=== PATIENT | male | born 1995 | race Caucasian/White ===

== ENCOUNTER 2021-04-24 14:20 | Emergency (ER) | payer BC ==
--- NOTE | 2021-04-24 16:09 | XRAY ---
Exam: CT of the lumbar spine without IV contrast from 04/24/2021. CTDI: 58.99 mGy Comparison: None. Indication: 26-year-old male fell on ice this morning; complains of low back pain. Technique: Non-IV contrast axial images were obtained through the lumbar spine using a bone window filter. Reconstructed coronal and sagittal images were created and reviewed. Findings: There are 5 [id number] lumbar-type vertebra. The lumbar vertebral body heights are adequately preserved and in good alignment. An acute fracture, spondylolisthesis, or spondylolysis is not seen. The neural foramen appear patent on the axial and sagittal images. The discs appear of average height. There is mild diffuse bulging of the L5-S1 disc. The facet joints appear unremarkable. The. The visualized sacroiliac joints appear unremarkable. Impression: 1. No acute lumbar spine fracture, spondylolisthesis, or spondylolysis seen. 2. There is incidental note of mild diffuse bulging of the L5-S1 disc, best appreciated on the sagittal images.
[2021-04-24 16:22] VITALS: BP 129/76; PULSE 80; O2SAT 96
--- NOTE | 2021-04-24 16:37 | ERPHSYRPT ---
- History of Present Illness Time Seen by Provider: 04/24/21 15:35 Source: patient Exam Limitations: no limitations Patient Subjective Stated Complaint: fall this am, lower back pain Triage Nursing Assessment: pt to ED c/o fall this morning on ice. pt states he hit his lower back on the steps. rates 8/10 pain currently. has not taken any meds for pain at home today. "I thought I could sleep it off and feel better but it still hurts." ambulatory with steady gate per self. Physician History: Patient 24-year-old male presents to emergency department with complaint of low back pain. Patient states that he slipped on steps fell backwards onto his buttock. Fall occurred today. Patient now complains of pain in his lumbosacral region. Patient went to sleep and felt that maybe if he rested the pain would resolve. Patient awoke from his sleep and states that his pain was significant. Patient is ambulatory. Pain described as an ache that is localized to the lumbosacral region. No radiation. No fever. No saddle anesthesia. No lower extremity numbness tingling or weakness. No change in bowel bladder function. Pain worse with movement and palpation. Pain improved with rest. No other injuries reported. No BHT or LOC. No neck pain. Cervical spine cleared clinically. Patient otherwise generally healthy. He voices no other complaints concerns at this time. Patient has no urinary symptomology. No frequency urgency dysuria hematuria. No flank pain. Timing/Duration: today Method of Injury: fall Quality: aching Back Pain Location: lumbar spine Back Pain Radiation: buttocks (No radiation.) Severity of Pain-Max: moderate Severity of Pain-Current: mild Modifying Factors: Improves With: movement Associated Symptoms: denies symptoms Previous symptoms: no prior history Allergies/Adverse Reactions: No Known Drug Allergies Allergy (Unverified 04/24/21 14:33) Home Medications: No Reportable Medications [No Reported Medications] 04/24/21 [History] Hx Tetanus, Diphtheria Vaccination/Date Given: No Hx Influenza Vaccination/Date Given: No Hx Pneumococcal Vaccination/Date Given: No Immunizations Up to Date: No Travel Risk - International Travel Have you traveled outside of the country in past 3 weeks: No - Coronavirus Screening Are you exhibiting any of the following symptoms?: No Close contact with a COVID-19 positive Pt in past 14-21 Days: No - Vaccine Status Have you recieved a Covid-19 vaccination: Yes Professor Of Physics: [employer] - Vaccination Dates Date of 2cond Vaccination (if applicable): apr - Review of Systems Constitutional: No Symptoms, No Fever, No Chills Eyes: No Symptoms Ears, Nose, & Throat: No Symptoms Respiratory: No Symptoms, No Cough, No Dyspnea Cardiac: No Symptoms, No Chest Pain, No Edema, No Syncope Abdominal/Gastrointestinal: No Symptoms, No Abdominal Pain, No Nausea, No Vomiting, No Diarrhea Genitourinary Symptoms: No Symptoms, No Dysuria Musculoskeletal: No Symptoms, No Back Pain, No Neck Pain Skin: No Symptoms, No Rash Neurological: No Symptoms, No Dizziness, No Focal Weakness, No Sensory Changes Psychological: No Symptoms Endocrine: No Symptoms Hematologic/Lymphatic: No Symptoms Immunological/Allergic: No Symptoms All Other Systems: Reviewed and Negative - Past Medical History Pertinent Past Medical History: No - Past Surgical History Past Surgical History: No - Social History Smoking Status: Current every day smoker How long have you smoked: 10 years Exposure to second hand smoke: Yes Drug Use: none Patient Lives Alone: No - Nursing Vital Signs Nursing Vital Signs: Initial Vital Signs Pulse Rate 87 04/24/21 15:29 Respiratory Rate 17 04/24/21 15:29 Blood Pressure 127/74 04/24/21 15:29 O2 Sat by Pulse Oximetry 95 04/24/21 15:29 Pain Scale Pain Intensity 8 - Physical Exam General Appearance: no apparent distress, alert Eye Exam: PERRL/EOMI, eyes nml inspection Ears, Nose, Throat Exam: normal ENT inspection, TMs normal, pharynx normal Neck Exam: normal inspection, non-tender, supple, full range of motion, No meningismus, No midline tenderness Respiratory Exam: normal breath sounds, lungs clear, airway intact, No respira tory distress Cardiovascular Exam: regular rate/rhythm, normal heart sounds, normal peripheral pulses Gastrointestinal Exam: soft, normal bowel sounds, No tenderness, No mass Extremity Exam: normal inspection, normal range of motion, No calf tenderness, No pedal edema Peripheral Pulses: dorsalis-pedis (R): 2+, dorsalis-pedis (L): 2+ Neurologic Exam: alert, oriented x 3, cooperative, contract analyst II-XII nml as tested, normal mood/affect, nml cerebellar function, nml station & gait, sensation nml, No motor deficits Skin Exam: normal color, warm, dry, No rash Lymphatic Exam: No adenopathy SpO2 Interpretation: normal SpO2: 96 O2 Delivery: Room Air - Course Nursing assessment & vital signs reviewed: Yes - CT Exams Lumbar Spine CT Interpretation: Tele-radiologist Report (No fracture dislocations. No acute pathology. Mild diffuse disc bulging observed.) Ordered Tests: Active Orders 24 hr Category Date Time Status LUMBAR SPINE W/O [CT] Stat Exams 04/24/21 15:38 Completed - Progress Progress: improved Progress Note: Patient reassessed. Patient is comfortable. No active pain. Patient declined pain medication. CT scan reveals diffuse mild disc bulging. Otherwise no fractures dislocations. No acute pathology observed. Patient states he is ready for discharge. Patient agrees to follow-up with his primary care doctor within 48 hours for evaluation. Patient voices no other complaints concerns at this time. Portions of this note were created with voice recognition technology. There may be grammatical, spelling, punctuation or sound alike errors 04/24/21 16:41 Counseled pt/family regarding: diagnosis, need for follow-up, rad results - Departure Departure Disposition: Home Clinical Impression: Fall, Lumbosacral strain Condition: Stable Critical Care Time: No Referrals: DOCTOR,NO FAMILY [Primary Care Provider] - Follow up/PCP as directed TERRANCE OVIEDO MD [ACTIVE STAFF] - Follow up/PCP as directed Additional Instructions: Discharge/Care Plan ERLINDA KELLY was seen on 04/24/21 in the Emergency Room. The patient was counseled regarding Diagnosis,Lab results, Imaging studies, need for follow up and when to return to the Emergency Room. Prescriptions given: Discharge Note I have spoken with the patient and/or caregivers. I have explained the patient's condition, diagnosis and treatment plan based on the information available to me at this time. I have answered the patient's and/or caregiver's questions and addressed any concerns. The patient and/or caregivers have as good understanding of the patient's diagnosis, condition and treatment plan as can be expected at this point. The vital signs have been stable. The patient's condition is stable and appropriate for discharge from the emergency department. The patient will pursue further outpatient evaluation with the primary care physician or other designated or consulting physician as outlined in the discharge instructions. The patient and/or caregivers are agreeable to this plan of care and follow-up instructions have been explained in detail. The patient and/or caregivers have received these instruction. The patient/and or caregivers are aware that any significant change in condition or worsening of symptoms should prompt an immediate return to this or the closest emergency department or call 911.
== END 2021-04-24 16:52 | disposition home or self-care (01) ==
LOC: ED 14:20
DX: S39.012A Strain of muscle, fascia and tendon of lower back, initial encounter (principal); W00.1XXA Fall from stairs and steps due to ice and snow, initial encounter; Z72.0 Tobacco use
CPT/HCPCS: 72131; 99283